=== PATIENT | female | born 1975 | race Caucasian/White ===

== ENCOUNTER 2017-09-27 00:12 | Emergency (ER) | payer MEDICAID ==
[~2017-09-27] VITALS: Ht 160 cm; Wt 76.0 kg
[2017-09-27 00:14] VITALS: BP 128/75; PULSE 98; RESP 18; TEMP 98; O2SAT 99
[2017-09-27] MEDS ORDERED: LORA-392 PO (00:33)
--- NOTE | 2017-09-27 00:50 | PD ---
HPI Chief Complaint: Pain: Acute or Chronic Time Seen by Provider: 00:37 Travel History International Travel<30 days: No Contact w/Intl Traveler<30days: No Traveled to known affect area: No History of Present Illness HPI Patient presents to the emergency department planing of "not feeling like myself." States that she feels tired bleeding of energy and wants to stay in the bed all day. History of depression anxiety. That she feels like " something is not right with me." She is reporting headache, nausea, chills, palpitations, lower back pain. Denies chest pain but reports numbness and tingling in her fingers and her toes, shortness of breath secondary to anxiety depression. Patient was driven to the emergency department by her daughter. She is a [employer] and reports having to do a lot of heavy lifting on the job. Additionally, she has been using patches and creams on her lower back for back pain. PFSH Past Medical History Asthma: Yes Anxiety: Yes Depression: Yes Diabetes: No (GESTATIONAL DIABETES WITH ONE CHILD) Diminished Hearing: Yes (TUBE IN EARS SEVERAL TIMES. DOES NOT HEAR THAT WELL PER HER STATEMENT) Respiratory: Yes (asthma) Immunizations Current: Yes Migraines: Yes Tetanus Vaccination: > 5 Years Influenza Vaccination: No ?: Not LMP: 6-1-18 : 5 Para: 5 Miscarriage: 0 : 0 Past Surgical History Ear Surgery: Yes (TUBES) Tonsillectomy: Yes Tympanostomy Tube: Yes (in both ears as a child) Other Surgery: Yes (IUD PLACED 08/23/09- REMOVED DUE TO INFECTION WEEKS AFTER.) Social History Alcohol Use: Yes (SOCIALLY- beer) Tobacco Use: Yes (soically smoker cigs) Substance Use: No Allergies-Medications (Allergen,Severity, Reaction): Coded Allergies: No Known Allergies (Verified Adverse Reaction, Unknown, 09/27/17) Reported Meds & Prescriptions Reported Meds & Active Scripts Active Reported Ativan (Lorazepam) 0.5 Mg Tab 0.5 Mg PO DAILY PRN Review of Systems Except as stated in HPI: all other systems reviewed are Neg Physical Exam Narrative GENERAL: No acute distress. EtOH SKIN: Focused skin assessment warm/dry. Peeling mid lower back (patient states this is secondary to patches that she uses on her back.) HEAD: Atraumatic. Normocephalic. EYES: Pupils equal and round. Extraocular muscles intact bilaterally.No scleral icterus. No injection or drainage. ENT: No nasal bleeding or discharge. Mucous membranes pink and moist. NECK: Trachea midline. No JVD. CARDIOVASCULAR: Regular rate and rhythm. No murmur appreciated. RESPIRATORY: No accessory muscle use. Clear to auscultation. Breath sounds equal bilaterally. GASTROINTESTINAL: Abdomen soft, non-tender, nondistended. Hepatic and splenic margins not palpable. MUSCULOSKELETAL: No obvious deformities. No clubbing. No cyanosis. No edema. NEUROLOGICAL: Awake and alert. No obvious cranial nerve deficits. Motor grossly within normal limits. Normal speech. Normal rectal tone. No saddle anesthesia. PSYCHIATRIC: Appropriate mood and affect; insight and judgment normal. Data Data Last Documented VS Vital Signs Date Time Temp Pulse Resp B/P (MAP) Pulse Ox O2 Delivery O2 Flow Rate FiO2 09/27/17 00:29 18 09/27/17 00:14 98.0 98 128/75 (92) 99 Orders Orders Electrocardiogram-Peds (09/27/17 00:37) Complete Blood Count With Diff (09/27/17 00:37) Comprehensive Metabolic Panel (09/27/17 00:37) Urinalysis - C+S If Indicated (09/27/17 00:37) Magnesium (Mg) (09/27/17 00:37) Thyroid Stimulating Hormone (09/27/17 00:37) Chest, Pa & Lat (09/27/17 00:37) Spine, Lumbar - Ltd (Ap & Lat) (09/27/17 00:37) Drug Screen, Random Urine (09/27/17 00:37) Alcohol (Ethanol) (09/27/17 00:37) Ed Urine Pregnancytest Poc (09/27/17 00:37) Troponin I (09/27/17 00:50) Ct Brain W/O Iv Contrast(Rout) (09/27/17 00:50) Electrocardiogram (09/27/17 00:50) Labs Laboratory Tests Test 09/27/17 00:55 09/27/17 00:59 Urine Color YELLOW Urine Turbidity CLEAR Urine pH 5.0 Urine Specific [place] LESS/EQUAL 1.005 Urine Protein NEG mg/dL Urine Glucose (UA) NEG mg/dL Urine Ketones NEG mg/dL Urine Occult Blood TRACE Urine Nitrite NEG Urine Bilirubin NEG Urine Urobilinogen 0.2 MG/DL Urine Leukocyte Esterase NEG Urine RBC 0-3 /hpf Urine Squamous Epithelial Cells 0-5 /hpf Microscopic Urinalysis Comment CULT NOT INDICATED Urine Opiates Screen NEG Urine Barbiturates Screen NEG Urine Amphetamines Screen NEG Urine Benzodiazepines Screen NEG Urine Cocaine Screen NEG Urine Cannabinoids Screen NEG White Blood Count 5.4 TH/MM3 Red Blood Count 3.96 MIL/MM3 Hemoglobin 13.6 GM/DL Hematocrit 39.0 % Mean Corpuscular Volume 98.6 FL Mean Corpuscular Hemoglobin 34.4 PG Mean Corpuscular Hemoglobin Concent 34.9 % Red Cell Distribution Width 13.4 % Platelet Count 301 TH/MM3 Mean Platelet Volume 7.8 FL Neutrophils (%) (Auto) 57.4 % Lymphocytes (%) (Auto) 31.8 % Monocytes (%) (Auto) 7.0 % Eosinophils (%) (Auto) 2.8 % Basophils (%) (Auto) 1.0 % Neutrophils # (Auto) 3.0 TH/MM3 Lymphocytes # (Auto) 1.7 TH/MM3 Monocytes # (Auto) 0.4 TH/MM3 Eosinophils # (Auto) 0.2 TH/MM3 Basophils # (Auto) 0.1 TH/MM3 CBC Comment DIFF FINAL Differential Comment Blood Urea Nitrogen 4 MG/DL Creatinine 0.55 MG/DL Random Glucose 101 MG/DL Total Protein 7.8 GM/DL Albumin 4.0 GM/DL Calcium Level 8.5 MG/DL Magnesium Level 2.1 MG/DL Alkaline Phosphatase 55 U/L Aspartate Amino Transf (AST/SGOT) 28 U/L Alanine Aminotransferase (ALT/SGPT) 43 U/L Total Bilirubin 0.3 MG/DL Sodium Level 143 MEQ/L Potassium Level 3.5 MEQ/L Chloride Level 109 MEQ/L Carbon Dioxide Level 27.6 MEQ/L Anion Gap 6 MEQ/L Estimat Glomerular Filtration Rate 122 ML/MIN Troponin I LESS THAN 0.02 NG/ML Thyroid Stimulating Hormone 3rd Gen 1.250 uIU/ML Ethyl Alcohol Level 236 MG/DL [facility] Medical Decision Making Medical Screen Exam Complete: Yes Emergency Medical Condition: Yes Interpretation(s) ECG: Sinus rhythm, normal axis, rate 89, pulse wave inversion in lead III and V1 ; labs show elevated EtOH level Last Impressions Head CT 09/27/17 0050 Signed Impressions: CONCLUSION: Negative noncontrast head CT. Lumbar Spine X-Ray 09/27/1736 Signed Impressions: CONCLUSION: Negative lumbar spine series. Chest X-Ray 09/27/1736 Signed Impressions: CONCLUSION: No acute cardiopulmonary process. Differential Diagnosis Electrolyte abnormality, hypothyroid, UTI,musculoskeletal back pain, substance abuse/intoxication Narrative Course Patient presents to the emergency department complaining of feeling tired and not like herself. Reports mid lower back pain. Patient placed on the monitor and IV access obtained. Head CT, chest x-ray, EKG, labs ordered. 0216: Please note patient will be discharged in the care of her daughter. As her daughter drove her to the emergency department. Diagnosis Primary Impression: Alcohol abuse Additional Impression: Back pain Qualified Codes: M54.5 - Low back pain; G89.29 - Other chronic pain Referrals: [facility] Patient Instructions: Abuse of Alcohol (ED), General Instructions Additional Instructions: 1. Follow-up primary care doctor in 48-72 hours. 2. Stop alcohol abuse. 3. Return to the ER for fever, vomiting, chest pain, shortness of breath, or for any new/worrisome/worsening symptoms. 3. [id number] pain meds for back pain. Disposition: 01 DISCHARGE HOME Condition: Stable Naomi Casanova MD Sep 27, 2017 00:50
[2017-09-27 01:08] LABS: BILIRUBIN, URINE NEG (NEG); BLOOD, URINE TRACE (NEG); GLUCOSE,URINE NEG (NEG); KETONE, URINE NEG (NEG); NITRITE,URINE NEG (NEG); URINE COLOR YELLOW (YELLW/STRAW); URINE LEUKOCYTE ESTERASE NEG (NEG)
[2017-09-27 01:18] LABS: CHLORIDE 109 MEQ/L (98-107); SODIUM (NA) 143 MEQ/L (136-145)
[2017-09-27 01:22] LABS: BICARBONATE 27.6 MEQ/L (21.0-32.0); CALCIUM 8.5 MG/DL (8.5-10.1); GLUCOSE,RANDOM 101 MG/DL (74-106); MAGNESIUM 2.1 MG/DL (1.5-2.5)
[2017-09-27 01:23] LABS: BLOOD UREA NITROGEN 4 MG/DL (7-18)
[2017-09-27 01:25] LABS: ALT (GPT) 43 U/L (10-53); AST (GOT) 28 U/L (15-37); CREATININE 0.55 MG/DL (0.50-1.00); GLOMERULAR FILTRATION RATE 122 ML/MIN (>89)
[2017-09-27 01:27] LABS: TOTAL BILIRUBIN ADULT 0.3 MG/DL (0.2-1.0); TOTAL PROTEIN 7.8 GM/DL (6.4-8.2)
[2017-09-27 01:28] LABS: ALKALINE PHOSPHATASE 55 U/L (45-117)
[2017-09-27 01:34] LABS: BASOPHIL # 0.1 TH/MM3 (0-0.2); EOSINOPHIL # 0.2 TH/MM3 (0-0.4); EOSINOPHIL % 2.8 % (0.0-4.0); HEMOGLOBIN 13.6 GM/DL (11.6-15.3); LYMPH % 31.8 % (9.0-44.0); LYMPHOCYTE # 1.7 TH/MM3 (1.0-4.8); MEAN CELL VOLUME 98.6 FL (80.0-100.0); MEAN CORPUSCULAR HEMOGLOBIN 34.4 PG (27.0-34.0); MEAN CORPUSCULAR HGB CONC 34.9 % (32.0-36.0); MEAN PLATELET VOLUME 7.8 FL (7.0-11.0); MONOCYTE # 0.4 TH/MM3 (0-0.9); NEUT % 57.4 % (16.0-70.0); PLATELET COUNT 301 TH/MM3 (150-450); RED BLOOD COUNT 3.96 MIL/MM3 (4.00-5.30); RED CELL DISTRIBUTION WIDTH 13.4 % (11.6-17.2); WHITE BLOOD COUNT 5.4 TH/MM3 (4.0-11.0)
[2017-09-27 01:56] LABS: RBC, URINE 0-3 /hpf (0-3); SQUAMOUS EPITHELIAL CELL URINE 0-5 /hpf (0-5)
--- NOTE | 2017-09-27 01:57 | RADRPT ---
EXAM DATE: 09/27/2017 1:13 AM EDT AGE/SEX: 42 years / Female INDICATIONS: Chest pain. CLINICAL DATA: This is the patient's initial encounter. Patient reports that signs and symptoms have been present for 3 weeks and indicates a pain score of 9/10. MEDICAL/SURGICAL HISTORY: . Asthma, Diabetes, Depression, Anxiety Tonsillectomy. COMPARISON: No prior [facility] exams available for comparison. FINDINGS: PA and lateral views of the chest demonstrate the lungs to be symmetrically aerated without evidence of mass, infiltrate or effusion. The cardiomediastinal contours are unremarkable. Osseous structures are intact. CONCLUSION: No acute cardiopulmonary process. Electronically signed by: Chino Callejas MD 09/27/2017 1:56 AM EDT
--- NOTE | 2017-09-27 01:59 | RADRPT ---
EXAM DATE: 09/27/2017 1:14 AM EDT AGE/SEX: 42 years / Female INDICATIONS: Lumbar spine pain. CLINICAL DATA: This is the patient's initial encounter. Patient reports that signs and symptoms have been present for 3 weeks and indicates a pain score of 9/10. MEDICAL/SURGICAL HISTORY: . Asthma, Diabetes, Depression, Anxiety Tonsillectomy. COMPARISON: No prior [facility] exams available for comparison. FINDINGS: The vertebral bodies are in normal alignment without evidence of compression deformity Bone density is normal for age. Soft tissues are grossly intact. CONCLUSION: Negative lumbar spine series. Electronically signed by: Chino Callejas MD 09/27/2017 1:57 AM EDT
--- NOTE | 2017-09-27 02:00 | RADRPT ---
EXAM DATE: 09/27/2017 1:30 AM EDT AGE/SEX: 42 years / Female INDICATIONS: Weakness,fingers tingling,headache,nausea CLINICAL DATA: This is the patient's initial encounter. Patient reports that signs and symptoms have been present for 1 day and indicates a pain score of 7/10. MEDICAL/SURGICAL HISTORY: Asthma. None. RADIATION DOSE: 55.09 CTDI (mGy) COMPARISON: No prior [facility] exams available for comparison. TECHNIQUE: CT of the head without contrast. Using automated exposure control and adjustment of the mA and/or kV according to patient size, radiation dose was kept as low as reasonably achievable to ob tain optimal diagnostic quality images. FINDINGS: Cerebrum: The ventricles are normal for age. No evidence of midline shift, mass lesion, hemorrhage or acute infarction. No extraaxial fluid collections are seen. Posterior Fossa: The cerebellum and brainstem are intact. The 4th ventricle is midline. The cerebe llopontine angle is unremarkable. Extracranial: The visualized portion of the orbits is intact. Skull: The calvaria is intact. No evidence of skull fracture. CONCLUSION: Negative noncontrast head CT. Electronically signed by: Chino Callejas MD 09/27/2017 1:58 AM EDT
[2017-09-27 02:15] VITALS: BP 135/77; PULSE 96; RESP 16; O2SAT 98
--- NOTE | 2017-09-28 08:53 | EKG ---
Date Performed: 09/27/2017 Time Performed: 00:47:46 PTAGE: 42 years EKG: Sinus rhythm NORMAL ECG NO PREVIOUS TRACING DOCTOR: Baldemar Rao Interpretating Date/Time 09/28/2017 08:52:13
== END 2017-09-27 02:25 | disposition home or self-care (01) ==
LOC: PHED 00:12
DX: F10.10 Alcohol abuse, uncomplicated (principal); Y90.7 Blood alcohol level of 200-239 mg/100 ml; M54.5 Low back pain; G89.29 Other chronic pain; F32.9 Major depressive disorder, single episode, unspecified; F41.9 Anxiety disorder, unspecified; J45.909 Unspecified asthma, uncomplicated; F17.210 Nicotine dependence, cigarettes, uncomplicated
CPT/HCPCS: 70450; 71046; 72100; 80053; 80307; 81001; 83735; 84443; 84484; 84703; 85025; 93005; 99285